=== PATIENT | male | born 1980 | race Caucasian/White ===

== ENCOUNTER 2019-04-12 15:50 | Emergency (ER) | payer OTHER ==
[~2019-04-12] VITALS: Ht 180.3 cm; Wt 86.2 kg
[~2019-04-12 15:50] MED LIST: BACTRIM DS TAB1 EACH PO; NOHOMEMEDICATIONS; PENICILLIN VK250 MG PO; PERCOCET 5-3251 EACH PO; ULTRAM 50MG TAB50 MG PO
[2019-04-12 16:46] LABS: ABSOLUTE BASOPHILS 0.1 thou/uL (0.0-0.2); ABSOLUTE EOSINOPHILS 0.1 thou/uL (0.0-0.7); ABSOLUTE LYMPHOCYTES 1.1 thou/uL (0.8-5.3); ABSOLUTE MONOCYTES 0.9 thou/uL (0.0-1.2); ABSOLUTE NEUTROPHILS 11.1 thou/uL (1.6-8.1); BASOPHILS 0.5 %; EOSINOPHILS 0.4 %; HEMATOCRIT 45.5 % (42.0-52.0); HEMOGLOBIN 15.6 gm/dL (14.0-18.0); LYMPHOCYTES 8.5 %; MCH 29.8 pg (26.0-34.0); MCHC 34.2 g/dL (28.0-37.0); MCV 87.2 fL (80.0-100.0); MONOCYTES 7.1 %; MPV 7.9 fl. (7.2-11.1); NUCLEATED RBCS 0 /100WBC; PLATELET COUNT* 310 thou/uL (150-400); POLYS 83.5 %; RBC 5.22 mil/uL (4.50-6.00); RDW-CV 13.8 % (10.5-14.5); WBC 13.3 thou/uL (4.0-11.0)
[2019-04-12 17:00] LABS: CALCIUM 9.4 mg/dL (8.5-10.1); POTASSIUM 3.7 mmol/L (3.5-5.1)
[2019-04-12 17:05] LABS: ALBUMIN 3.8 g/dL (3.4-5.0); TOTAL BILIRUBIN 0.5 mg/dL (<0.1-1.0); TOTAL PROTEIN 7.5 g/dL (6.4-8.2)
[2019-04-12] MEDS ORDERED: AUGMENTIN 875-1 EACH PO (17:08)
[2019-04-12] MEDS ORDERED: FLONASE 0.05%50 MCG NASAL (17:08)
[2019-04-12] MEDS ORDERED: BUTALB-APAP-CA1 EACH PO (17:08)
[2019-04-12] MEDS ORDERED: MUCINEX600 MG PO (17:08)
[2019-04-12 17:24] VITALS: BP 99/57
== END 2019-04-12 17:25 | disposition home or self-care (01) ==
LOC: M.ERS 15:50
PROVIDERS: Nurse Practitioner Family
DX: J01.20 Acute ethmoidal sinusitis, unspecified (principal); R09.82 Postnasal drip; G43.909 Migraine, unspecified, not intractable, without status migrainosus